=== PATIENT | male | born 1955 | race Two or more races ===

== ENCOUNTER 2016-12-26 06:39 | Day surgery (SDC) | payer OTHER ==
[2016-12-22 12:03] VITALS: BMI 28.0
[~2016-12-26 06:39] MED LIST: LACTATED RINGERS 1,000 ML IV SCH; LIDOCAINE 1% 20 ML VIAL (10MG/ML) FOR IV START INTRADERMA PRN
[2016-12-26 07:11] VITALS: TEMP 97.2
[2016-12-26] MEDS ORDERED: LACTATED RINGERS 1,000 ML IV ONE (07:15)
[2016-12-26] MEDS ORDERED: PROPOFOL 10 MG/ML 20 ML VIAL IV ONE (07:36)
--- NOTE | 2016-12-26 07:55 | P.GSHP ---
History of Present Illness H&P Date: 12/26/16 Chief Complaint: Screening colonoscopy This is a 61-year-old male referred from Dr. Guerita gruber. Patient was a safer screening colonoscopy. Denies a significant GI complaints. - Constitutional Constitutional: Reports as per HPI Past Medical History Past Medical History: Hyperlipidemia History of Any Multi-Drug Resistant Organisms: None Reported Additional Past Surgical History / Comment(s): sx for hiatal hernia Past Anesthesia/Blood Transfusion Reactions: No Reported Reaction Past Psychological History: No Psychological Hx Reported Smoking Status: Never smoker Past Alcohol Use History: Occasional Past Drug Use History: None Reported - Past Family History Father Family Medical History: Cancer Mother Family Medical History: Cancer Medications and Allergies Home Medications Medication Instructions Recorded Confirmed Type Simvastatin 1 tab PO DAILY 12/22/16 History Allergies Allergy/AdvReac Type Severity Reaction Status Date / Time No Known Allergies Allergy Verified 12/22/16 11:56 Surgical - Exam Vital Signs Temp Pulse Resp BP Pulse Ox 97.2 F L 64 18 125/84 98 12/26/16 07:10 12/26/16 07:10 12/26/16 07:10 12/26/16 07:10 12/26/16 07:10 - General well developed, no distress - Eyes PERRL - ENT normal pinna - Neck no masses - Respiratory normal expansion - Cardiovascular Rhythm: regular - Abdomen Abdomen: soft, non tender Assessment and Plan Plan: We'll perform screening colonoscopy.
--- NOTE | 2016-12-26 08:07 | P.OP ---
Date of Procedure: 12/26/16 Preoperative Diagnosis: Screening colonoscopy Postoperative Diagnosis: Diverticulosis Procedure(s) Performed: Colonoscopy Anesthesia: MAC Surgeon: Thaddeus Duckworth Pathology: none sent Condition: stable Disposition: PACU Description of Procedure: The patient's placed on the endoscopy table in the lateral position. Digital rectal exam was performed which revealed no abnormalities. The prostate was symmetric without nodules. The flexible colonoscope was then placed in the anus and passed throughout the entire colon. The ileocecal valve was visualized. The cecum, ascending and transverse colon appeared normal. In the descending; there is moderate diverticular changes. There is no evidence of diverticulitis. The scope was then brought back the rectum and this appeared normal. Scope was withdrawn for patient.
[2016-12-26 08:29] VITALS: BP 104/70; PULSE 57; RESP 16
== END 2016-12-26 08:40 | disposition home or self-care (01) ==
LOC: ORWHC2ENDO 06:39
PROVIDERS: ATTEND Surgery
DX: Z12.11 Encounter for screening for malignant neoplasm of colon (principal); K57.30 Diverticulosis of large intestine without perforation or abscess without bleeding; E78.5 Hyperlipidemia, unspecified; Z79.899 Other long term (current) drug therapy
CPT/HCPCS: J2704; G0121

== ENCOUNTER 2020-04-03 08:27 | Day surgery (SDC) | payer MEDICARE, OTHER ==
[2020-04-01 09:34] VITALS: BMI 29.7
[~2020-04-03 08:27] MED LIST changes: +LIDOCAINE 1% (10MG/ML) FOR IV START INTRADERMA PRN; -LIDOCAINE 1% 20 ML VIAL (10MG/ML) FOR IV START INTRADERMA PRN
[2020-04-03 08:44] VITALS: TEMP 97.8
[2020-04-03] MEDS ORDERED: LACTATED RINGERS 1,000 ML IV ONE (08:45)
[2020-04-03] MEDS ORDERED: fentaNYL (PF) 50 MCG/ML 2 ML AMP ONE (09:33)
[2020-04-03] MEDS ORDERED: PROPOFOL 10 MG/ML 20 ML VIAL IV ONE (09:33)
[2020-04-03] MEDS ORDERED: MIDAZOLAM 2 MG/2 ML VIAL ONE (09:33)
--- NOTE | 2020-04-03 09:37 | P.GSHP ---
History of Present Illness H&P Date: 04/03/20 Chief Complaint: Screening colonoscopy, family history colon cancer This a 65-year-old male been sick for colonoscopy. Patient has a strong family history of colon cancer with his father having colon cancer. He denies any significant GI complaints. Past Medical History Past Medical History: Hyperlipidemia Additional Past Medical History / Comment(s): NO MEDS AT THIS TIME History of Any Multi-Drug Resistant Organisms: None Reported Past Surgical History: Hernia Repair Additional Past Surgical History / Comment(s): sx for hiatal hernia. COLONOSCOPY. EGD Past Anesthesia/Blood Transfusion Reactions: No Reported Reaction Smoking Status: Never smoker - Past Family History Father Family Medical History: Cancer Mother Family Medical History: Cancer Medications and Allergies Home Medications Medication Instructions Recorded Confirmed Type No Known Home Medications 04/01/20 04/01/20 History Allergies Allergy/AdvReac Type Severity Reaction Status Date / Time No Known Allergies Allergy Verified 04/01/20 09:28 Surgical - Exam Vital Signs Temp Pulse Resp BP Pulse Ox 97.8 F 78 18 151/87 98 04/03/20 08:43 04/03/20 08:43 04/03/20 08:43 04/03/20 08:43 04/03/20 08:43 - General well developed, well nourished, no distress - Eyes PERRL - ENT normal pinna - Neck no masses - Respiratory normal expansion - Cardiovascular Rhythm: regular - Abdomen Abdomen: soft, non tender Assessment and Plan Assessment: We'll perform screening colonoscopy
--- NOTE | 2020-04-03 09:44 | P.OP ---
Date of Procedure: 04/03/20 Preoperative Diagnosis: Screening colonoscopy, family history of colonic cancer Postoperative Diagnosis: Diverticulosis Procedure(s) Performed: Colonoscopy Anesthesia: MAC Surgeon: Thaddeus Duckworth Pathology: none sent Condition: stable Disposition: PACU Description of Procedure: Patient's placed on the endoscopy table in the lateral position. She received IV sedation. Digital rectal exam performed which revealed no abnormalities. The prostate was symmetric without nodules. The flexible colonoscope was then placed patient anus and passed throughout the entire colon. The ileocecal valve was visualized. The cecum, ascending and transverse colon appeared normal. In the descending and sigmoid colon there is moderate diverticular changes. Scope was then brought back the rectum and this appeared normal. Scope was brought patient.
[2020-04-03 10:03] VITALS: BP 110/69; PULSE 64; RESP 16
== END 2020-04-03 10:24 | disposition home or self-care (01) ==
LOC: ORWHC2ENDO 08:27
PROVIDERS: ATTEND Surgery
DX: Z12.11 Encounter for screening for malignant neoplasm of colon (principal); K57.30 Diverticulosis of large intestine without perforation or abscess without bleeding; E78.5 Hyperlipidemia, unspecified; Z87.19 Personal history of other diseases of the digestive system; Z98.890 Other specified postprocedural states; Z80.0 Family history of malignant neoplasm of digestive organs; Z80.9 Family history of malignant neoplasm, unspecified
CPT/HCPCS: G0105; J2250; J3010; J2704; 45378

== ENCOUNTER 2024-05-27 14:19 | Day surgery (SDC) | payer MEDICARE ==
[2024-05-23 18:03] VITALS: BMI 28.0
[~2024-05-27 14:19] MED LIST changes: -LACTATED RINGERS 1,000 ML IV SCH
[2024-05-27 14:48] VITALS: RESP 16; TEMP 97.5
[2024-05-27] MEDS: IV FLUID CONTINUATION 1,000 ML IV ONE (14:49)
[2024-05-27] MEDS: LACTATED RINGERS 1,000 ML IV SCH (14:49)
[2024-05-27] MEDS ORDERED: PROPOFOL 10 MG/ML 20 ML VIAL IV ONE (16:52)
[2024-05-27] MEDS ORDERED: LIDOCAINE 1% INJ 10MG/ML (20 ML MDV) ONE (16:52)
--- NOTE | 2024-05-27 16:57 | P.GSHP ---
History of Present Illness H&P Date: 05/27/24 Chief Complaint: Screening colonoscopy Is a 16-year-old male presents today for screening colonoscopy. Patient denies any significant GI complaints. Past Medical History Past Medical History: Hyperlipidemia Additional Past Medical History / Comment(s): NO MEDS AT THIS TIME. MID CHEST PAIN WHEN LAYING DOWN History of Any Multi-Drug Resistant Organisms: None Reported Past Surgical History: Hernia Repair Additional Past Surgical History / Comment(s): sx for hiatal hernia. COLONOSCOPY. EGD Past Anesthesia/Blood Transfusion Reactions: No Reported Reaction Smoking Status: Never smoker - Past Family History Father Family Medical History: Cancer Mother Family Medical History: Cancer Medications and Allergies Home Medications Medication Instructions Recorded Confirmed Type No Known Home Medications 04/01/20 05/27/24 History Allergies Allergy/AdvReac Type Severity Reaction Status Date / Time No Known Allergies Allergy Verified 05/27/24 14:42 Surgical - Exam Vital Signs Temp Pulse Resp BP Pulse Ox 97.5 F L 64 16 132/70 99 05/27/24 14:44 05/27/24 14:44 05/27/24 14:44 05/27/24 14:44 05/27/24 14:44 - General well developed, well nourished, no distress - Eyes PERRL - ENT normal pinna - Neck no masses - Respiratory normal expansion - Cardiovascular Rhythm: regular - Abdomen Abdomen: soft, non tender Assessment and Plan Assessment: Will perform screening colonoscopy.
--- NOTE | 2024-05-27 17:04 | P.GSHP ---
History of Present Illness H&P Date: 05/27/24 Chief Complaint: Gerd Is a 69-year-old male who presents today for EGD. Patient is issues with GERD. Past Medical History Past Medical History: Hyperlipidemia Additional Past Medical History / Comment(s): NO MEDS AT THIS TIME. MID CHEST PAIN WHEN LAYING DOWN History of Any Multi-Drug Resistant Organisms: None Reported Past Surgical History: Hernia Repair Additional Past Surgical History / Comment(s): sx for hiatal hernia. COLONOSCOPY. EGD Past Anesthesia/Blood Transfusion Reactions: No Reported Reaction Smoking Status: Never smoker - Past Family History Father Family Medical History: Cancer Mother Family Medical History: Cancer Medications and Allergies Home Medications Medication Instructions Recorded Confirmed Type No Known Home Medications 04/01/20 05/27/24 History Allergies Allergy/AdvReac Type Severity Reaction Status Date / Time No Known Allergies Allergy Verified 05/27/24 14:42 Surgical - Exam Vital Signs Temp Pulse Resp BP Pulse Ox 97.5 F L 64 16 132/70 99 05/27/24 14:44 05/27/24 14:44 05/27/24 14:44 05/27/24 14:44 05/27/24 14:44 - General well developed, well nourished, no distress - Eyes PERRL - ENT normal pinna, normal nares, normal mucosa - Neck no masses - Respiratory normal expansion - Cardiovascular Rhythm: regular - Abdomen Abdomen: soft, non tender Assessment and Plan Assessment: Gerd. Will perform EGD
--- NOTE | 2024-05-27 17:06 | P.OP ---
Date of Procedure: 05/27/24 Preoperative Diagnosis: Gerd Postoperative Diagnosis: Sliding hiatal hernia Esophagitis Procedure(s) Performed: EGD Anesthesia: MAC Surgeon: Thaddeus Duckworth Pathology: other (Antrum, esophagus) Condition: stable Disposition: PACU Description of Procedure: The patient is placed on the endoscopy table in the lateral position. He received IV sedation. The gas was placed oropharynx passed in the esophagus and stomach. Scope was in place through the pylorus. The first and second portion of the duodenum appeared normal. Scope was brought back to the antrum this was mildly inflamed. A biopsy was performed. Scope was then retroflexed and the Mainer of the stomach appeared normal. The GE junction was at 38 cm. The distal esophagus appeared mildly inflamed. There was a sliding hiatal hernia. The proximal esophagus appeared normal. Scope withdrawn for the patient.
[2024-05-27 17:24] VITALS: BP 121/71; PULSE 70
== END 2024-05-27 17:49 | disposition home or self-care (01) ==
LOC: ORWHC2ENDO 14:19
PROVIDERS: ATTEND Surgery
DX: K21.9 Gastro-esophageal reflux disease without esophagitis
CPT/HCPCS: 43239; 88305